=== PATIENT | male | born 1980 | race Caucasian/White ===

== ENCOUNTER 2017-04-26 22:23 | Observation (INO) | payer SELFPAY ==
[2017-04-26] MEDS ORDERED: Sodium Chloride 0.9% 1,000 ML IV STA (22:39)
--- NOTE | 2017-04-26 22:42 | ED PDOC ---
HPI: Psych/Substance Abuse Time Seen by Provider: 04/26/17 22:40 Chief Complaint (Nursing): Substance Abuse Chief Complaint (Provider): n ED Caveat: Intoxicated History Per: Patient (36 y/o male brought to ED by ambulance for evaluation of altered mentation. Family unsure if patient is on drugs. Patient denies any drug activity. States he has h/o cocaine use 2 years ago. Admits etoh use and is here for palpitations.) Past Medical History Reviewed: Historical Data, Nursing Documentation, Vital Signs Vital Signs: Last Vital Signs Temp 97.9 F 04/26/17 22:25 Pulse 94 H 04/26/17 22:25 Resp 16 04/26/17 22:25 BP 137/88 04/26/17 22:25 Pulse Ox 96 04/26/17 22:25 - Medical History PMH: Asthma - Family History Family History: States: Unknown Family Hx - Social History Current smoker - smoking cessation education provided: Yes Alcohol: Social Drugs: Denies, Other (h/o cocaine abuse 2 years ago) - Immunization History Hx Tetanus Toxoid Vaccination: No Hx Influenza Vaccination: No Hx Pneumococcal Vaccination: No - Home Medications Home Medications: Ambulatory Orders Medication Instructions Recorded Albuterol Sulfate [Proair Hfa] 2 inh INH PRN PRN 04/27/17 - Allergies Allergies/Adverse Reactions: Allergies Allergy/AdvReac Type Severity Reaction Status Date / Time No Known Allergies Allergy Unverified 07/05/14 13:50 Review of Systems ROS Statement: Except As Marked, All Systems Reviewed And Found Negative Cardiovascular: Positive for: Palpitations Physical Exam - Reviewed Nursing Documentation Reviewed: Yes Vital Signs Reviewed: Yes - Physical Exam Appears: Positive for: Well, Non-toxic, No Acute Distress Head Exam: Positive for: ATRAUMATIC, NORMAL INSPECTION, NORMOCEPHALIC Skin: Positive for: Normal Color, Warm, DRY Eye Exam: Positive for: EOMI, Normal appearance, PERRL ENT: Positive for: Normal ENT Inspection Neck: Positive for: Normal, Painless ROM Cardiovascular/Chest: Positive for: Regular Rate, Rhythm Respiratory: Positive for: CNT, Normal Breath Sounds Gastrointestinal/Abdominal: Positive for: Normal Exam, Bowel Sounds, Soft Back: Positive for: Normal Inspection Extremity: Positive for: Normal ROM Neurologic/Psych: Positive for: Alert, Oriented - Laboratory Results Result Diagrams: 04/26/17 23:09 04/26/17 23:09 - ECG O2 Sat by Pulse Oximetry: 96 - Progress ED Course And Treament: ekg: nsr 83 bpm; no ectopy; J ptn elevation V2-V3 CXR: cardiomegaly ASA 324 mg x 1 dose Ativan 1 mg iv x 1 dose Ns 1 liter 500 ml per hour d/w Dr. Snider for admission. Disposition - Clinical Impression Clinical Impression: Chest pain, Cocaine use - Patient ED Disposition Is Patient to be Admitted: Yes - Disposition Disposition Time: 01:03 Condition: FAIR - Pt Status Changed To: Hospital Disposition Of: Observation
[2017-04-26 23:36] LABS: BASO # 0.1 K/uL (0.0-0.2); BASO % 1.5 % (0.0-2.0); EOS # 0.2 K/uL (0.0-0.7); HEMATOCRIT 39.9 % (35.0-51.0); LYMPH # 2.8 K/uL (1.0-4.3); LYMPH % 30.9 % (20.0-40.0); MEAN CELL VOLUME 85.4 fl (80.0-94.0); MEAN CORPUSCULAR HEMOGLOBIN 27.8 pg (27.0-31.0); MEAN CORPUSCULAR HGB CONC 32.5 g/dL (33.0-37.0); MEAN PLATELET VOLUME 8.1 fl (7.2-11.7); MONO # 0.7 K/uL (0.0-0.8); MONO % 8.2 % (0.0-10.0); NEUT # 5.2 K/uL (1.8-7.0); NEUT % 57.4 % (50.0-75.0); NRBC % 0.1 % (0.0-0.0); RED CELL DISTRIBUTION WIDTH 14.8 % (11.5-14.5); WHITE BLOOD COUNT 9.1 K/uL (4.8-10.8)
[2017-04-27 00:09] LABS: ALB/GLOB RATIO 1.3 (1.0-2.1); ALCOHOL SERUM 137 mg/dl (0-10); ALKALINE PHOSPHATASE 56 U/L (38-126); ALT/SGPT 49 U/L (21-72); AST/SGOT 41 U/L (17-59); BILIRUBIN,TOTAL 0.5 mg/dl (0.2-1.3); BLOOD UREA NITROGEN 8 mg/dl (9-20); CALCIUM 9.2 mg/dL (8.4-10.2); CARBON DIOXIDE 19 mmol/L (22-30); CHLORIDE 112 mmol/L (98-107); GFR AFRICAN-AMERICAN > 60; GLUCOSE,RANDOM 97 mg/dL (75-110); MAGNESIUM 2.1 MG/DL (1.6-2.3); POTASSIUM 3.6 MMOL/L (3.6-5.0); SODIUM 145 mmol/l (132-148); TOTAL PROTEIN 7.4 G/DL (6.3-8.2)
--- NOTE | 2017-04-27 02:38 | CP.PCM.HP ---
History of Present Illness - History of Present Illness History of Present Illness: CC: I drank today HPI: 36 year old PMH asthma presents this evening after drinking appx 10 beers and using a "normal amount" of cocaine. He began to feel mod continuing palpitations in chest, not associated with other symptoms, at which time he called EMS and waited outside. When he tired of waiting and no longer wanted to answer questions he laid himself on the concrete because he was tired and slept. He eventually went came to the emergency room at which time he reported palpitations, and sharp chest pain. At the time of this interview and exam patient continues to have palpitations HR 80-88, however denies any chest pain, pressure, at present or prior. Patient to be observed overnight as he is an unreliable historian due to etoh intoxication. Trend enzymes, monitor on tele, rule out acs. ROS: per HPI, all other systems reviewed and neg PMSH: DENIES FH: DENIES SH: COCAINE USE UNKNOWN HOW OFTEN, ETOH+, TOBACCO DAILY FOR A FEW YEARS MEDS: NONE NKDA Present on Admission - Present on Admission Any Indicators Present on Admission: No Past Patient History - Past Social History Alcohol: Social Drugs: Denies, Other (h/o cocaine abuse 2 years ago) - PULMONARY Hx Asthma: Yes - PSYCHIATRIC Hx Substance Use: Yes (History of cocaine and marajuana use) Meds Allergies/Adverse Reactions: Allergies Allergy/AdvReac Type Severity Reaction Status Date / Time No Known Allergies Allergy Unverified 07/05/14 13:50 Physical Exam - Constitutional Appears: Non-toxic, No Acute Distress - Head Exam Head Exam: ATRAUMATIC, NORMOCEPHALIC - Eye Exam Eye Exam: EOMI, Normal appearance, PERRL Pupil Exam: NORMAL ACCOMODATION - ENT Exam ENT Exam: Mucous Membranes Moist, Normal Oropharynx - Neck Exam Neck exam: Positive for: Full Rom, Normal Inspection - Respiratory Exam Respiratory Exam: Clear to Auscultation Bilateral, NORMAL BREATHING PATTERN. absent: Rhonchi, Wheezes - GI/Abdominal Exam GI & Abdominal Exam: Normal Bowel Sounds, Soft. absent: Mass, Tenderness - Extremities Exam Extremities exam: Positive for: normal capillary refill, pedal pulses present - Back Exam Back exam: absent: CVA tenderness (L), CVA tenderness (R) - Neurological Exam Neurological exam: Alert, Normal Gait - Psychiatric Exam Psychiatric exam: Normal Affect, Normal Mood - Skin Skin Exam: Dry, Normal Color, Warm Results - Vital Signs Recent Vital Signs: Last Vital Signs Temp 97.9 F 04/26/17 22:25 Pulse 78 04/27/17 02:15 Resp 20 04/27/17 02:15 BP 121/58 L 04/27/17 02:15 Pulse Ox 97 04/27/17 02:15 - Labs Result Diagrams: 04/26/17 23:09 04/26/17 23:09 Labs: Laboratory Results - last 24 hr 04/26/17 04/26/17 04/26/17 23:09 23:09 23:09 WBC 9.1 RBC 4.67 Hgb 13.0 Hct 39.9 MCV 85.4 MCH 27.8 MCHC 32.5 L RDW 14.8 H Plt Count 216 MPV 8.1 Neut % (Auto) 57.4 Lymph % (Auto) 30.9 [place] % (Auto) 8.2 Eos % (Auto) 2.0 Baso % (Auto) 1.5 Neut # 5.2 Lymph # 2.8 [place] # 0.7 Eos # 0.2 Baso # 0.1 Sodium 145 Potassium 3.6 Chloride 112 H Carbon Dioxide 19 L Anion Gap 18 BUN 8 L Creatinine 0.7 L Est GFR ( Amer) > 60 Est GFR (Non-Af Amer) > 60 Random Glucose 97 Calcium 9.2 Magnesium 2.1 Total Bilirubin 0.5 AST 41 ALT 49 Alkaline Phosphatase 56 Troponin I < 0.0120 Total Protein 7.4 Albumin 4.2 Globulin 3.2 Albumin/Globulin Ratio 1.3 Urine Opiates Screen Negative Urine Methadone Screen Negative Ur Barbiturates Screen Negative Ur Phencyclidine Scrn Negative Ur Amphetamines Screen Negative U Benzodiazepines Scrn Negative U Oth Cocaine Metabols Positive H U Cannabinoids Screen Negative Alcohol, Quantitative 137 H Assessment & Plan - Assessment and Plan (Free Text) Plan: 36 year old PMH asthma presents this evening after drinking appx 10 beers and using a "normal amount" of cocaine. He began to feel mod continuing palpitations in chest, not associated with other symptoms, at which time he called EMS and waited outside. When he tired of waiting and no longer wanted to answer questions he laid himself on the concrete because he was tired and slept. He eventually went came to the emergency room at which time he reported palpitations, and sharp chest pain. At the time of this interview and exam patient continues to have palpitations HR 80-88, however denies any chest pain, pressure, at present or prior. Patient to be observed overnight as he is an unreliable historian due to etoh intoxication. Trend enzymes, monitor on tele, rule out acs. Palpitation Chest Pain? trend cardiac enzymes, Tn neg x1 EKG RBBB, no signs of acute isch or infarct monitor on tele Asa 81 mg daily HD stable Polysubstance Abuse cocaine and ETOH avoid BB cessation counseling offered VTE PPX lovenox
[2017-04-27 07:35] LABS: HEMATOCRIT 37.4 % (35.0-51.0); MEAN CELL VOLUME 86.8 fl (80.0-94.0); MEAN CORPUSCULAR HEMOGLOBIN 27.8 pg (27.0-31.0); MEAN CORPUSCULAR HGB CONC 32.1 g/dL (33.0-37.0); RED CELL DISTRIBUTION WIDTH 15.3 % (11.5-14.5); WHITE BLOOD COUNT 10.6 K/uL (4.8-10.8)
[2017-04-27 08:03] LABS: BLOOD UREA NITROGEN 9 mg/dl (9-20); CALCIUM 8.6 mg/dL (8.4-10.2); CARBON DIOXIDE 17 mmol/L (22-30); CHLORIDE 114 mmol/L (98-107); CHOLESTEROL 134 mg/dL (0-199); GFR AFRICAN-AMERICAN > 60; GLUCOSE,RANDOM 87 mg/dL (75-110); POTASSIUM 3.7 MMOL/L (3.6-5.0); SODIUM 147 mmol/l (132-148)
[2017-04-27 08:13] VITALS: BP 123/82; PULSE 73; RESP 18; TEMP 98.5; O2SAT 100
[2017-04-27 08:17] LABS: THYROID STIMULATING HORMONE 1.39 mIU/ML (0.46-4.68)
[2017-04-27] MEDS ORDERED: Pneumococcal 23-Valent Vaccine IM ONE (09:00)
[2017-04-27] MEDS ORDERED: Influenza Vaccine 18yr & older 0.5 ML/45 MCG SYR IM ONE (09:00)
[2017-04-27] MEDS: Enoxaparin 40 mg Syringe SC SCH ×2 (10:28→10:47)
--- NOTE | 2017-04-27 10:34 | RAD ---
PROCEDURE: CHEST RADIOGRAPH, 1 VIEW HISTORY: palpitations COMPARISON: None available. FINDINGS: LUNGS: Clear. PLEURA: No pneumothorax or pleural fluid seen. CARDIOVASCULAR: Normal. OSSEOUS STRUCTURES: No significant abnormalities. VISUALIZED UPPER ABDOMEN: Normal. OTHER FINDINGS: None. IMPRESSION: No active disease.
--- NOTE | 2017-04-27 10:42 | CP.PCM.DIS ---
Provider - Provider Date of Admission: 04/27/17 01:03 Attending physician: Mariely Snider Primary care physician: None Consults: none Time Spent in preparation of Discharge (in minutes): 15 Hospital Course - Lab Results Lab Results: Most Recent Lab Values WBC 10.6 K/uL (4.8-10.8) 04/27/17 07:00 RBC 4.30 Mil/uL (4.40-5.90) L 04/27/17 07:00 Hgb 12.0 g/dL (12.0-18.0) 04/27/17 07:00 Hct 37.4 % (35.0-51.0) 04/27/17 07:00 MCV 86.8 fl (80.0-94.0) 04/27/17 07:00 MCH 27.8 pg (27.0-31.0) 04/27/17 07:00 MCHC 32.1 g/dL (33.0-37.0) L 04/27/17 07:00 RDW 15.3 % (11.5-14.5) H 04/27/17 07:00 Plt Count 203 K/uL (130-400) 04/27/17 07:00 MPV 8.1 fl (7.2-11.7) 04/26/17 23:09 Neut % (Auto) 57.4 % (50.0-75.0) 04/26/17 23:09 Lymph % (Auto) 30.9 % (20.0-40.0) 04/26/17 23:09 [place] % (Auto) 8.2 % (0.0-10.0) 04/26/17 23:09 Eos % (Auto) 2.0 % (0.0-4.0) 04/26/17 23:09 Baso % (Auto) 1.5 % (0.0-2.0) 04/26/17 23:09 Neut # 5.2 K/uL (1.8-7.0) 04/26/17 23:09 Lymph # 2.8 K/uL (1.0-4.3) 04/26/17 23:09 Major # 0.7 K/uL (0.0-0.8) 04/26/17 23:09 Eos # 0.2 K/uL (0.0-0.7) 04/26/17 23:09 Baso # 0.1 K/uL (0.0-0.2) 04/26/17 23:09 Sodium 147 mmol/l (132-148) 04/27/17 05:30 Potassium 3.7 MMOL/L (3.6-5.0) 04/27/17 05:30 Chloride 114 mmol/L (98-107) H 04/27/17 05:30 Carbon Dioxide 17 mmol/L (22-30) L 04/27/17 05:30 Anion Gap 20 (10-20) 04/27/17 05:30 BUN 9 mg/dl (9-20) 04/27/17 05:30 Creatinine 0.8 mg/dL (0.8-1.5) 04/27/17 05:30 Est GFR ( Amer) > 60 04/27/17 05:30 Est GFR (Non-Af Amer) > 60 04/27/17 05:30 POC Glucose (mg/dL) 94 mg/dL (65-110) 04/26/17 23:01 Random Glucose 87 mg/dL (75-110) 04/27/17 05:30 Calcium 8.6 mg/dL (8.4-10.2) 04/27/17 05:30 Magnesium 2.1 MG/DL (1.6-2.3) 04/26/17 23:09 Total Bilirubin 0.5 mg/dl (0.2-1.3) 04/26/17 23:09 AST 41 U/L (17-59) 04/26/17 23:09 ALT 49 U/L (21-72) 04/26/17 23:09 Alkaline Phosphatase 56 U/L (38-126) 04/26/17 23:09 Troponin I < 0.0120 ng/mL (0.00-0.120) 04/26/17 23:09 Total Protein 7.4 G/DL (6.3-8.2) 04/26/17 23:09 Albumin 4.2 g/dL (3.5-5.0) 04/26/17 23:09 Globulin 3.2 gm/dL (2.2-3.9) 04/26/17 23:09 Albumin/Globulin Ratio 1.3 (1.0-2.1) 04/26/17 23:09 Triglycerides 196 mg/DL (0-149) H 04/27/17 05:30 Cholesterol 134 mg/dL (0-199) 04/27/17 05:30 LDL Cholesterol Direct 76 mg/dL (0-129) 04/27/17 05:30 HDL Cholesterol 36 MG/DL (30-70) 04/27/17 05:30 TSH 3rd Generation 1.39 mIU/ML (0.46-4.68) 04/27/17 05:30 Urine Opiates Screen Negative (NEGATIVE) 04/26/17 23:09 Urine Methadone Screen Negative (NEGATIVE) 04/26/17 23:09 Ur Barbiturates Screen Negative (NEGATIVE) 04/26/17 23:09 Ur Phencyclidine Scrn Negative (NEGATIVE) 04/26/17 23:09 Ur Amphetamines Screen Negative (NEGATIVE) 04/26/17 23:09 U Benzodiazepines Scrn Negative (NEGATIVE) 04/26/17 23:09 U Oth Cocaine Metabols Positive (NEGATIVE) H 04/26/17 23:09 U Cannabinoids Screen Negative (NEGATIVE) 04/26/17 23:09 Alcohol, Quantitative 137 mg/dl (0-10) H 04/26/17 23:09 - Hospital Course Hospital Course: 36 year old with PMH asthma presented after drinking appx 10 beers and using a "normal amount" of cocaine. He began to feel palpitations in chest, not associated with other symptoms, at which time he called EMS and waited outside. When he got tired of waiting and no longer wanted to answer questions he laid himself on the concrete because he was tired and slept. He eventually came to the emergency room at which time he reported palpitations, and sharp chest pain. At the time of this interview and exam patient continued to have palpitations HR 80-88, however denied any chest pain, pressure, at present or prior. Patient placed under obseration for chest pain to rule out ACS His first Trop was negative, EKG showed no acute St-T wave changes RBBB. In AM patient states that feels well, has no symptoms and wants to go home and does not want to wait for any further work up, no blood test , no EKG. Counselled patient on cocaine and ETOH abuse and risk for NE and cardiomyopathy as well as sudden . Patient states that he understands patient will sign AMA Palpitation Chest Pain? Polysubstance Abuse ETOH and cocaine Tobacco vanessa disorder Discharge Exam - Head Exam Head Exam: ATRAUMATIC, NORMOCEPHALIC - Eye Exam Eye Exam: EOMI, Normal appearance, PERRL Pupil Exam: NORMAL ACCOMODATION - ENT Exam ENT Exam: Mucous Membranes Moist, Normal Exam - Neck Exam Neck exam: Full Rom - Respiratory Exam Respiratory Exam: Clear to PA & Lateral, NORMAL BREATHING PATTERN. absent: Rhonchi, Wheezes, Respiratory Distress - Cardiovascular Exam Cardiovascular Exam: REGULAR RHYTHM, RRR, +S1, +S2. absent: JVD - GI/Abdominal Exam GI & Abdominal Exam: Normal Bowel Sounds, Soft. absent: Distended, Guarding, Rebound, Tenderness - Rectal Exam Rectal Exam: Deferred - Extremities Exam Extremities exam: normal capillary refill, normal inspection, pedal pulses present - Back Exam Back exam: NORMAL INSPECTION - Psychiatric Exam Psychiatric exam: Normal Affect, Normal Mood - Skin Skin Exam: Dry, Intact, Normal Color, Warm Discharge Plan - Follow Up Plan Condition: FAIR Disposition: AGAINST MEDICAL ADVICE
--- NOTE | 2017-04-27 13:30 | CARD ---
APPROVED REPORT EKG Measurement Heart [id number] <Conclusion> Normal sinus rhythm Right bundle branch block Abnormal ECG
== END 2017-04-27 10:37 | disposition left against medical advice (07) ==
LOC: H.ER 22:23 → H.ERHOLD 04-27 01:03 → H.TEL 04-27 03:03
PROVIDERS: ATTEND Student in an Organized Health Care Education/Training Program
DX: F10.129 Alcohol abuse with intoxication, unspecified (principal); F14.90 Cocaine use, unspecified, uncomplicated; F17.200 Nicotine dependence, unspecified, uncomplicated; J45.909 Unspecified asthma, uncomplicated; R00.2 Palpitations; R07.9 Chest pain, unspecified; R53.83 Other fatigue; Z23 Encounter for immunization
CPT/HCPCS: 36415; 71010; 80048; 80053; 80061; 82948; 83735; 84443; 84484; 85025; 85027; 90732; 93005; 96360; 96361; 99285; G0008; G0009; G0378; G0480; J7040; Q2035

== ENCOUNTER 2018-11-15 04:57 | Emergency (ER) | payer SELFPAY ==
[2018-11-15 05:13] VITALS: RESP 16; O2SAT 99
[2018-11-15] MEDS ORDERED: Sodium Chloride 0.9% 1,000 ML IV STA (05:15)
--- NOTE | 2018-11-15 05:36 | ED PDOC ---
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 Patient states he normally does this much cocaine but normally drinks more alcohol in order not to feel chest pain. He reports he had palpitations in the past because of cocaine abuse. Patient reports he feels nervous as if he is going to . He has been told many time to stop cocaine. Patient denies chest pain and shortness of breath. PMD: None provided Past Medical History Reviewed: Historical Data, Nursing Documentation, Vital Signs Vital Signs: Last Vital Signs Temp 98.6 F 11/15/18 05:12 Pulse 93 H 11/15/18 05:12 Resp 16 11/15/18 05:12 BP 146/93 H 11/15/18 05:12 Pulse Ox 99 11/15/18 05:12 - Medical History PMH: Asthma - Surgical History Surgical History: No Surg Hx - Family History Family History: States: Unknown Family Hx - Social History Current smoker - smoking cessation education provided: Yes Alcohol: Social Drugs: Cocaine - Immunization History Hx Tetanus Toxoid Vaccination: No Hx Influenza Vaccination: No Hx Pneumococcal Vaccination: No - Home Medications Home Medications: Ambulatory Orders Medication Instructions Recorded Albuterol Sulfate [Proair Hfa] 2 inh INH PRN PRN 04/27/17 Prednisone [Deltasone] 3 tab PO DAILY #12 tablet 09/21/17 - Allergies Allergies/Adverse Reactions: Allergies Allergy/AdvReac Type Severity Reaction Status Date / Time No Known Allergies Allergy Unverified 09/21/17 15:23 Review of Systems ROS Statement: Except As Marked, All Systems Reviewed And Found Negative Cardiovascular: Negative for: Chest Pain Respiratory: Negative for: Shortness of Breath Physical Exam - Reviewed Nursing Documentation Reviewed: Yes Vital Signs Reviewed: Yes - Physical Exam Appears: Positive for: No Acute Distress (Anxious appearing) Head Exam: Positive for: ATRAUMATIC Skin: Positive for: Normal Color, Warm, Dry Eye Exam: Positive for: Normal appearance, EOMI, PERRL ENT: Positive for: Normal ENT Inspection Neck: Positive for: Normal, Painless ROM, Supple Cardiovascular/Chest: Positive for: Regular Rate, Rhythm. Negative for: Murmur Respiratory: Positive for: Normal Breath Sounds. Negative for: Wheezing Gastrointestinal/Abdominal: Positive for: Normal Exam, Soft. Negative for: Tenderness Back: Positive for: Normal Inspection. Negative for: L CVA Tenderness, R CVA Tenderness Extremity: Positive for: Normal ROM. Negative for: Pedal Edema, Deformity Neurological/Psych: Positive for: Awake, Alert, Oriented (x3) - Laboratory Results Result Diagrams: 11/15/18 05:31 11/15/18 05:31 - ECG ECG Rhythm: Positive for: Sinus Rhythm, Right Bundle Branch Block. Negative for: ST/T Changes Rate: 94 O2 Sat by Pulse Oximetry: 99 (RA) Pulse Ox Interpretation: Normal Medical Decision Making Medical Decision Making: Time: 514 A/P: Cocaine induces chest pain --Will monitor patient and provide symptomatic treatment and continue to monitor 645 --Labs are normal, patient feels much improved --Cautioned against further cocaine and alcohol abuse --WEll appearing with stable vitals upon discharge --- Scribe Attestation: Documented by Vandana Robb, acting as a scribe for Souleymane Garcia MD. Provider Scribe Attestation: All medical record entries made by the Scribe were at my direction and personally dictated by me. I have reviewed the chart and agree that the record accurately reflects my personal performance of the history, physical exam, medical decision making, and the department course for this patient. I have also personally directed, reviewed, and agree with the discharge instructions and d isposition. Disposition - Clinical Impression Clinical Impression: Cocaine use, Alcohol abuse - Patient ED Disposition Is Patient to be Admitted: No - Disposition Referrals: Alcoholics Anonymous [Outside] Disposition: Routine/Home Disposition Time: 07:06 Condition: IMPROVED Instructions: Cocaine Use Disorder, Alcohol Use - When Is Drinking a Problem? Forms: [facility] (Guatemalan) Print Language: LATVIAN
[2018-11-15 05:43] LABS: BASO # 0.1 K/uL (0.0-0.2); BASO % 0.8 % (0.0-2.0); EOS # 0.2 K/uL (0.0-0.7); EOS % 1.9 % (0.0-4.0); HEMOGLOBIN 14.1 g/dL (12.0-18.0); LYMPH # 4.2 K/uL (1.0-4.3); LYMPH % 38.9 % (20.0-40.0); MEAN CELL VOLUME 84.8 fl (80.0-94.0); MEAN CORPUSCULAR HEMOGLOBIN 28.2 pg (27.0-31.0); MEAN CORPUSCULAR HGB CONC 33.3 g/dL (33.0-37.0); MEAN PLATELET VOLUME 8.8 fl (7.2-11.7); MONO # 0.6 K/uL (0.0-0.8); MONO % 5.8 % (0.0-10.0); NEUT # 5.7 K/uL (1.8-7.0); NEUT % 52.6 % (50.0-75.0); NRBC % 0.1 % (0.0-0.0); RED CELL DISTRIBUTION WIDTH 14.7 % (11.5-14.5); WHITE BLOOD COUNT 10.9 K/uL (4.8-10.8)
[2018-11-15 05:47] LABS: BLOOD UREA NITROGEN 14 mg/dl (9-20); CALCIUM 9.4 mg/dL (8.4-10.2); GFR NON-AFRICAN AMERICAN > 60
[2018-11-15 06:52] VITALS: BP 132/84; TEMP 98.2
[2018-11-15 07:09] VITALS: PULSE 94
[2018-11-15 07:50] LABS: BARBITURATES, UR NEGATIVE (NEGATIVE); BENZODIAZEPINES, UR NEGATIVE (NEGATIVE); OPIATES, UR NEGATIVE (NEGATIVE); PHENCYCLIDINE, UR NEGATIVE (NEGATIVE)
--- NOTE | 2018-11-16 21:29 | CARD ---
APPROVED REPORT Date of service: 11/15/2018 EKG Measurement Heart [id number] <Conclusion> Normal sinus rhythm Right bundle branch block Abnormal ECG
== END 2018-11-15 07:10 | disposition home or self-care (01) ==
LOC: H.ER 04:57
DX: F14.90 Cocaine use, unspecified, uncomplicated (principal); F10.10 Alcohol abuse, uncomplicated
CPT/HCPCS: 80048; 84484; 85025; 93005; 99284; G0480; J2060; J7030